=== PATIENT | male | born 1980 | race Caucasian/White ===

== ENCOUNTER 2017-05-20 08:39 | Emergency (ER) | payer MEDICAID, OTHER ==
[~2017-05-20] VITALS: Ht 175.3 cm; Wt 125.0 kg
[2017-05-20] MEDS ORDERED: dexamethasone sod phosphate 10mg/ml inj PO STA (09:16)
[2017-05-20] MEDS ORDERED: ondansetron 4mg rapidly disintigrating tab PO ONE (09:20)
[2017-05-20] MEDS ORDERED: AMOX875T10 PO (09:30)
[2017-05-20 10:36] VITALS: BP 129/68
== END 2017-05-20 10:38 | disposition home or self-care (01) ==
LOC: ER 08:39
DX: J02.0 Streptococcal pharyngitis (principal); F17.210 Nicotine dependence, cigarettes, uncomplicated; Z59.0 Homelessness; Z79.899 Other long term (current) drug therapy
CPT/HCPCS: 99283; J1100

== ENCOUNTER 2017-06-07 08:11 | Emergency (ER) | payer MEDICAID, OTHER ==
[~2017-06-07] VITALS: Ht 175.3 cm; Wt 128.2 kg
[~2017-06-07 08:11] MED LIST: AMOX875T10 PO
[2017-06-07 08:50] LABS: BASOPHILS % (AUTO) 0.1 % (0-1); EOSINOPHILS % (AUTO) 0 % (0-6); HEMATOCRIT 47.6 % (42.0-52.0); HEMOGLOBIN 16.5 g/dl (14.0-17.9); LYMPHOCYTES # (AUTO) 0.3 X10'3 (1.1-4.8); LYMPHOCYTES % (AUTO) 2.1 % (21-51); MEAN CORPUSCULAR HEMOGLOBIN 29.9 PG (27.0-31.0); MEAN CORPUSCULAR HGB CONC 34.7 % (33.0-36.5); MEAN CORPUSCULAR VOLUME 86.3 FL (78-98); MEAN PLATELET VOLUME 8.5 FL (7.4-10.4); MONOCYTES # (AUTO) 0.3 X10'3 (0-0.9); MONOCYTES % (AUTO) 2.1 % (2-12); NEUTROPHILS # (AUTO) 14.7 X10'3 (1.8-7.7); NEUTROPHILS % (AUTO) 95.7 % (42-75); PLATELET COUNT 274 X10'3 (140-440); RED BLOOD COUNT 5.51 X10'6 (4.70-6.10); RED CELL DISTRIBUTION WIDTH 13.4 % (11.5-14.5); WHITE BLOOD COUNT 15.4 X10'3 (4.5-11.0)
[2017-06-07 08:59] LABS: PROTHROMBIN TIME 10.2 SECONDS (9.0-12.0)
[2017-06-07 09:04] LABS: ALANINE AMINOTRANSFERASE 94 U/L (12-78); ALBUMIN 3.8 G/DL (3.4-5.0); ALBUMIN/GLOBULIN RATIO 0.8 (1.1-1.5); ALKALINE PHOSPHATASE 87 IU/L (46-116); ANION GAP 13 (8-16); ASPARTATE AMINO TRANSFERASE 30 U/L (10-37); BILIRUBIN,TOTAL 0.7 MG/DL (0.1-1.0); BLOOD UREA NITROGEN 24 MG/DL (7-18); CALCIUM 8.9 MG/DL (8.5-10.1); CHLORIDE 102 MMOL/L (99-107); GLUCOSE 154 MG/DL (70-104); POTASSIUM 4.1 MMOL/L (3.5-5.1); SODIUM 141 MMOL/L (135-145); TOTAL CARBON DIOXIDE 26.5 MMOL/L (24-32); TOTAL PROTEIN 8.4 G/DL (6.4-8.2); eGFR 86 ML/MIN
[2017-06-07 09:54] LABS: CLARITY,URINE CLEAR (Clear); COLOR,URINE YELLOW (Yellow); GLUCOSE, URINE NEGATIVE (Neg); KETONES,URINE NEGATIVE (Neg); LEUKOCYTE ESTERASE ,URINE NEGATIVE (Neg); NITRITES, URINE NEGATIVE (Neg); OCCULT BLOOD,URINE SMALL (Neg); PH,URINE 5.5 (4.8-8.0); PROTEIN,URINE TRACE mg/dl (Neg); UROBILINOGEN,URINE 0.2 E.U/dL (0.2-1.0)
[2017-06-07 09:56] LABS: UA COLLECTION TYPE CLN CATCH MIDSTREAM
[2017-06-07 10:02] LABS: MUCUS STRANDS MODERATE /LPF (Neg); SQUAMOUS EPITHELIAL CELL,UR FEW /LPF (FEW)
[2017-06-07 10:03] LABS: BACTERIA,URINE FEW /HPF (Neg); RBC,URINE 0-2 /HPF (0-2); WBC,URINE 0-4 /HPF (0-4)
[2017-06-07] MEDS ORDERED: ondansetron/PF 4mg/2ml inj IV ONE (10:40)
[2017-06-07] MEDS ORDERED: normal saline 1000ML IV soln IVB ONE (10:40)
[2017-06-07] MEDS ORDERED: ONDA4TAB9 SL (10:41)
[2017-06-07 10:58] LABS: PLATELET ESTIMATE NORMAL; TOTAL CELLS COUNTED 100
[2017-06-07 11:31] VITALS: BP 140/86
== END 2017-06-07 11:34 | disposition home or self-care (01) ==
LOC: ER 08:12
DX: T62.8X1A Toxic effect of other specified noxious substances eaten as food, accidental (unintentional), initial encounter (principal); K52.9 Noninfective gastroenteritis and colitis, unspecified; R00.0 Tachycardia, unspecified; Z59.0 Homelessness; Z60.2 Problems related to living alone; Y92.89 Other specified places as the place of occurrence of the external cause
CPT/HCPCS: 36415; 80053; 81001; 85025; 85610; 93005; 96361; 96374; 99285; J2405; J7030

== ENCOUNTER 2017-06-26 13:46 | Emergency (ER) | payer MEDICAID ==
[~2017-06-26] VITALS: Ht 175.3 cm; Wt 129.0 kg
[2017-06-26 13:59] VITALS: BP 148/96
[2017-06-26] MEDS ORDERED: CLIN300C54 PO (14:25)
== END 2017-06-26 14:35 | disposition home or self-care (01) ==
LOC: ER 13:47
DX: H04.302 Unspecified dacryocystitis of left lacrimal passage (principal); Z59.0 Homelessness; Z60.2 Problems related to living alone; Z79.899 Other long term (current) drug therapy
CPT/HCPCS: 99283

== ENCOUNTER 2018-06-13 14:10 | Emergency (ER) | payer MEDICAID ==
[~2018-06-13] VITALS: Ht 175.3 cm; Wt 129.0 kg
[~2018-06-13 14:10] MED LIST changes: +BENZ-16 PO; +CLIN300C54 PO
[2018-06-13 15:39] LABS: BASOPHILS # (AUTO) 0.1 X10'3 (0-0.2); BASOPHILS % (AUTO) 1.1 % (0-1); EOSINOPHILS # (AUTO) 0.3 X10'3 (0-0.9); EOSINOPHILS % (AUTO) 2.6 % (0-6); HEMATOCRIT 46.3 % (42.0-52.0); HEMOGLOBIN 15.7 g/dl (14.0-17.9); LYMPHOCYTES # (AUTO) 1.6 X10'3 (1.1-4.8); LYMPHOCYTES % (AUTO) 16.3 % (21-51); MEAN CORPUSCULAR HGB CONC 33.9 g/dL (33.0-36.5); MEAN CORPUSCULAR VOLUME 88.4 FL (78-98); MEAN PLATELET VOLUME 8.9 FL (7.4-10.4); MONOCYTES # (AUTO) 0.6 X10'3 (0-0.9); MONOCYTES % (AUTO) 6.1 % (2-12); NEUTROPHILS # (AUTO) 7.2 X10'3 (1.8-7.7); NEUTROPHILS % (AUTO) 73.9 % (42-75); PLATELET COUNT 241 X10'3 (140-440); RED BLOOD COUNT 5.23 X10'6 (4.70-6.10); RED CELL DISTRIBUTION WIDTH 13.3 % (11.5-14.5); WHITE BLOOD COUNT 9.7 X10'3 (4.5-11.0)
[2018-06-13 15:51] LABS: PARTIAL THROMBOPLASTIN TIME 29 SECONDS (22-32); PROTHROMBIN TIME 9.9 SECONDS (9.0-12.0)
[2018-06-13 15:56] LABS: ALBUMIN 3.4 G/DL (3.4-5.0); ANION GAP 8 (8-16); BILIRUBIN,TOTAL 0.2 MG/DL (0.1-1.0); BLOOD UREA NITROGEN 12 MG/DL (7-18); BUN/CREATININE RATIO 15.2 (5.4-32.0); CALCIUM 8.4 MG/DL (8.5-10.1); CHLORIDE 104 MMOL/L (99-107); CREATININE 0.79 MG/DL (0.60-1.10); GLUCOSE 111 MG/DL (70-104); POTASSIUM 3.8 MMOL/L (3.5-5.1); SODIUM 140 MMOL/L (135-145); TOTAL CARBON DIOXIDE 28.3 MMOL/L (24-32); TOTAL PROTEIN 7.3 G/DL (6.4-8.2); eGFR > 90 ML/MIN
[2018-06-13 15:57] LABS: ALANINE AMINOTRANSFERASE 65 U/L (12-78); ALBUMIN/GLOBULIN RATIO 0.9 (1.1-1.5); ALKALINE PHOSPHATASE 91 IU/L (46-116); ASPARTATE AMINO TRANSFERASE 25 U/L (10-37)
[2018-06-13 17:16] VITALS: BP 130/87
== END 2018-06-13 17:18 | disposition home or self-care (01) ==
LOC: ER 14:11
DX: R00.2 Palpitations (principal); Z79.899 Other long term (current) drug therapy; Z87.891 Personal history of nicotine dependence; Z59.0 Homelessness
CPT/HCPCS: 36415; 71045; 80053; 84484; 85025; 85610; 85730; 99284